=== PATIENT | female | born 1995 | race Caucasian/White ===

== ENCOUNTER 2025-04-28 19:57 | Emergency (ER) | payer SELFPAY ==
[~2025-04-28] VITALS: Ht 170.2 cm; Wt 83.9 kg
[2025-04-28 21:20] VITALS: PULSE 93; RESP 19; TEMP 99.8
[2025-04-28 21:54] LABS: STREPTOCOCCUS GRP A ANTIGEN NEGATIVE (NEGATIVE)
[2025-04-28 22:00] LABS: CORONAVIRUS COVID-19 AG NEGATIVE (NEGATIVE)
[2025-04-28 22:05] LABS: BASOPHILS % 0.2 % (0.0-1.0); EOSINOPHILS % 0.3 % (0.0-6.0); LYMPHOCYTES % 14.1 % (18.0-39.1); MONOCYTES % 7.9 % (4.4-11.3); NEUTROPHILS % 77.2 % (38.7-80.0); RED CELL DISTRIBUTION WIDTH 12.6 % (11.7-14.4)
[2025-04-28 22:12] LABS: EST GLOMERULAR FILTRATION RATE 105.0 ML/MIN (>=60)
[2025-04-28 22:37] LABS: LEUKOCYTE ESTERASE ,URINE NEGATIVE (NEGATIVE); PROTEIN,URINE DIPSTICK 2+ (NEGATIVE)
[2025-04-28 22:38] LABS: URINE UROBILINOGEN 1 mg/dL (0.2 - 1)
[2025-04-28 22:39] LABS: PREGNANCY TEST, URINE NEGATIVE (NEGATIVE)
[2025-04-28] MEDS: SODIUM CHLORIDE 0.9% 1000ML 2,000 ML IV STA (22:48)
[2025-04-28] MEDS: ONDANSETRON HCL INJ 2MG/ML 2ML 2 MG/ML VIAL IV STA (22:48)
[2025-04-28] MEDS: METOCLOPRAMIDE HCL 10 MG/2ML VIAL IV STA (22:49)
[2025-04-28 22:55] LABS: EPITHELIAL CELLS,URINE MANY /LPF; WBC,URINE (MAN) 0-5 /HPF (0-5)
[2025-04-28] MEDS ORDERED: FIORICET 50-301 EACH PO (23:39)
[2025-04-29 00:34] VITALS: BP 119/84; PULSE 63; RESP 18; TEMP 98.2; O2SAT 98
== END 2025-04-29 | disposition home or self-care (01) ==
LOC: ER 20:01
DX: R51.9 Headache, unspecified (principal); M79.10 Myalgia, unspecified site; R11.2 Nausea with vomiting, unspecified; R19.7 Diarrhea, unspecified; R53.81 Other malaise; Z11.52 Encounter for screening for COVID-19
CPT/HCPCS: 36415; 80053; 81001; 81025; 83518; 83690; 85025; 87070; 87428; 99284; J2405; J2765; J7030